=== PATIENT | male | born 1955 | race American Indian/Alaskan Native ===

== ENCOUNTER 2016-09-14 17:12 | Emergency (ER) | payer BC ==
[~2016-09-14] VITALS: Ht 167.6 cm; Wt 86.2 kg
[2016-09-14 19:12] VITALS: BP 168/86
[2016-09-14 19:43] LABS: BASOPHILS # (AUTO) 0.3 K/uL (0.00-0.22); BASOPHILS % (AUTO) 2.8 % (0.0-2.0); EOSINOPHILS # (AUTO) 0.2 K/uL (0-0.4); EOSINOPHILS % (AUTO) 1.8 % (0.0-4.0); HEMATOCRIT 38.7 % (36-52); HEMOGLOBIN 12.8 g/dL (12.0-18.0); LYMPHOCYTES # (AUTO) 3.1 K/uL (2.0-11.5); LYMPHOCYTES % (AUTO) 30.3 % (20.5-51.1); MEAN CORPUSCULAR HEMOGLOBIN 29 pg (27-31); MEAN CORPUSCULAR HGB CONC 33 g/dL (33-37); MEAN CORPUSCULAR VOLUME 88 fL (80-94); MONOCYTES # (AUTO) 0.6 K/uL (0.8-1.0); MONOCYTES % (AUTO) 6.3 % (1.7-9.3); NEUTROPHILS # (AUTO) 5.9 K/uL (1.8-7.7); NEUTROPHILS % (AUTO) 58.8 % (42.2-75.2); PLATELET COUNT (AUTO) 385 K/uL (140-450); RED BLOOD CELL COUNT(AUTO) 4.39 MIL/uL (4.20-6.10); RED CELL DISTRIBUTION WIDTH 14.1 % (11.6-13.7); WHITE BLOOD COUNT (AUTO) 10.1 K/uL (4.8-10.8)
[2016-09-14 19:53] LABS: ANION GAP 9.2 (8-16); CARBON DIOXIDE 29.9 mmol/L (21-32); CREATININE 1.1 mg/dL (0.6-1.3); POTASSIUM 4.1 mmol/L (3.5-5.1)
--- NOTE | 2016-09-14 19:55 | NUR ---
TO ER OF 4
[2016-09-14 19:59] LABS: ALBUMIN 3.3 g/dL (3.4-5.0); TOTAL BILIRUBIN 0.3 mg/dL (0.0-1.0); TOTAL PROTEIN, SERUM 8.1 g/dL (6.4-8.2)
--- NOTE | 2016-09-14 20:05 | NUR ---
Patient being evaluated by physician.
--- NOTE | 2016-09-14 20:42 | NUR ---
Patient discharged with v/s stable. Written and verbal after care instructions given and explained. Patient alert, oriented and verbalized understanding of instructions. Ambulatory with steady gait. All questions addressed prior to discharge. ID band removed. Patient advised to follow up with PMD. Rx of BENADRYL TOP CREAM AND BACTRIM DS given. Patient educated on indication of medication including possible reaction and side effects. Opportunity to ask questions provided and answered.
[2016-09-14 21:00] VITALS: BP 155/92
== END 2016-09-14 20:42 | disposition home or self-care (01) ==
LOC: MED 17:12
DX: S80.812A Abrasion, left lower leg, initial encounter (principal); L03.116 Cellulitis of left lower limb; I10 Essential (primary) hypertension; E78.5 Hyperlipidemia, unspecified; E11.9 Type 2 diabetes mellitus without complications; Z86.73 Personal history of transient ischemic attack (TIA), and cerebral infarction without residual deficits; X58.XXXA Exposure to other specified factors, initial encounter; Y93.89 Activity, other specified; Y92.89 Other specified places as the place of occurrence of the external cause; Y99.8 Other external cause status
CPT/HCPCS: 36415; 80053; 85025; 99284

== ENCOUNTER 2019-05-10 14:09 | Emergency (ER) | payer BC, OTHER ==
[~2019-05-10] VITALS: Ht 167.6 cm; Wt 74.4 kg
[2019-05-10 14:20] VITALS: BP 102/75
--- NOTE | 2019-05-10 14:25 | NUR ---
PATIENT TAKEN BY WHEELCHAIR TO BED 4
--- NOTE | 2019-05-10 14:59 | NUR ---
labs drawn at iv start--handed to lab
[2019-05-10] MEDS ORDERED: MECLIZINE 25 MG TAB PO ONE (15:00)
[2019-05-10] MEDS ORDERED: FAMOTIDINE 20 MG TAB PO ONE (15:00)
[2019-05-10] MEDS ORDERED: ONDANSETRON 4 MG/2 ML VIAL IVP ONE (15:00)
--- NOTE | 2019-05-10 15:18 | NUR ---
PT TO CT BY WHEELCHAIR.
[2019-05-10 15:26] LABS: BASOPHILS % (AUTO) 0.3 % (0.0-2.0); EOSINOPHILS % (AUTO) 0.2 % (0.0-4.0); HEMATOCRIT 41.5 % (36-52); HEMOGLOBIN 14.1 g/dL (12.0-18.0); LYMPHOCYTES # (AUTO) 1.2 K/uL (2.0-11.5); LYMPHOCYTES % (AUTO) 11.1 % (20.5-51.1); MEAN CORPUSCULAR HEMOGLOBIN 30 pg (27-31); MEAN CORPUSCULAR HGB CONC 34 g/dL (33-37); MEAN CORPUSCULAR VOLUME 89.3 fL (80-94); MONOCYTES # (AUTO) 1.3 K/uL (0.8-1.0); MONOCYTES % (AUTO) 11.6 % (1.7-9.3); NEUTROPHILS # (AUTO) 8.6 K/uL (1.8-7.7); NEUTROPHILS % (AUTO) 76.8 % (42.2-75.2); PLATELET COUNT (AUTO) 565 K/uL (140-450); RED BLOOD CELL COUNT(AUTO) 4.65 MIL/uL (4.20-6.10); RED CELL DISTRIBUTION WIDTH 13.2 % (11.6-13.7); WHITE BLOOD COUNT (AUTO) 11.2 K/uL (4.8-10.8)
--- NOTE | 2019-05-10 15:28 | NUR ---
returned from ct via [facility]
[2019-05-10] MEDS ORDERED: FAMOTIDINE 20 MG TAB ONE (15:56)
--- NOTE | 2019-05-10 15:59 | NUR ---
PT DROPPED ONE OF THE PEPCID TABLETS. REPLACEMENT PEPCID TABLET GIVEN.
[2019-05-10 16:05] LABS: ALBUMIN 2.6 g/dL (3.4-5.0); ANION GAP 26.2 (8-16); CARBON DIOXIDE 19.8 mmol/L (21-32); CREATININE 2.1 mg/dL (0.7-1.3); TOTAL BILIRUBIN 0.6 mg/dL (0.0-1.0)
[2019-05-10 16:27] LABS: PROTHROMBIN TIME 8.9 secs (10.8-13.4)
[2019-05-10] MEDS ORDERED: INSULIN REGULAR, HUMAN 100 UNIT/ML VIAL IVP ONE (16:40)
[2019-05-10] MEDS ORDERED: NACL 0.9% 1,000 ML IV ONE ×2 (16:40→19:55)
[2019-05-10 17:49] LABS: APPEARANCE,URINE CLEAR (CLEAR); BILIRUBIN,URINE 1+ (NEGATIVE); BLOOD, URINE 1+ (NEGATIVE); COLOR,URINE YELLOW (YELLOW); LEUKOCYTE ESTERASE ,URINE NEGATIVE (NEGATIVE); NITRITE, URINE NEGATIVE (NEGATIVE); PH,URINE 5.5 (5.0-9.0); UGLUCOSE 3+ (NEGATIVE)
[2019-05-10 18:13] LABS: RBC,URINE 0-5 /HPF (0-5); WBC,URINE NONE SEEN /HPF (0-5)
--- NOTE | 2019-05-10 19:12 | NUR ---
REPORT GIVEN TO GUICHO QUISPE FOR CHANGE OF SHIFT.
--- NOTE | 2019-05-10 19:13 | NUR ---
RECEIVED REPORT FROM GUICHO MARIE. TRANSFER OF CARE AT THIS TIME.
--- NOTE | 2019-05-10 19:29 | NUR ---
RESTING WITH EYES CLOSED, VISIBLE RISE AND FALL OF THE CHEST. PT REMAINS ON MONITOR. NO C/O PAIN AT THIS TIME. VSS. WILL CONTINUE TO MONITOR.
--- NOTE | 2019-05-10 20:20 | NUR ---
REPORT CALLED TO GUICHO WRIGHT AT [facility].
--- NOTE | 2019-05-10 20:50 | NUR ---
[facility] AT BEDSIDE FOR TRANSFER TP [place]
--- NOTE | 2019-05-10 20:51 | NUR ---
Patient to be transferred to [facility]. Is being transferred due to HIGHER LEVEL OF CARE. Receiving facility has accepting physician and available space. ER physician has signed transfer form. Patient or responsible libertarian has agreed to transfer and signed form. Patient belongings inventoried and will be sent with patient. Copy of nursing notes, lab reports, EKG, Physicians Orders and X-rays to be sent with patient. Report called to KYLE at receiving facility. [facility] ambulance service has been called for transfer. ETA is 10.
[2019-05-10 20:53] VITALS: BP 122/68
== END 2019-05-10 20:50 | disposition short-term general hospital (02) ==
LOC: MED 14:09
DX: R53.1 Weakness (principal); R42 Dizziness and giddiness; E87.1 Hypo-osmolality and hyponatremia; H91.90 Unspecified hearing loss, unspecified ear; E11.9 Type 2 diabetes mellitus without complications; I10 Essential (primary) hypertension; E78.00 Pure hypercholesterolemia, unspecified; Z87.448 Personal history of other diseases of urinary system
CPT/HCPCS: 36415; 70450; 71045; 80053; 81001; 82550; 82948; 83880; 84484; 85025; 85610; 85730; 93005; 96361; 96374; 96375; 99285; J1815; J2405; J7030; J8597; Q0092; 99284